=== PATIENT | female | born 1940 | race African-American/Black ===

== ENCOUNTER 2022-02-24 12:47 | Emergency (ER) | payer MEDICARE, MEDICAID ==
[~2022-02-24] VITALS: Ht 165.1 cm; Wt 78.0 kg
[~2022-02-24 12:47] MED LIST: ALBU25PO2 INH; ASPI-1079 PO; BUDE6HFA INH; LOSA1TAB37 PO; LOVA20TA2 PO; METF-414 PO; P20 PO; PRED10TA PO
[2022-02-24 12:51] VITALS: BP 185/93
[2022-02-24] MEDS ORDERED: ACETAMINOPHEN 325MG TABLET PO ONE (15:30)
[2022-02-24] MEDS ORDERED: ACET-2708 MT (16:07)
== END 2022-02-24 16:37 | disposition home or self-care (01) ==
LOC: ER 12:47
DX: S09.8XXA Other specified injuries of head, initial encounter (principal); S93.401A Sprain of unspecified ligament of right ankle, initial encounter; J44.9 Chronic obstructive pulmonary disease, unspecified; E11.9 Type 2 diabetes mellitus without complications; I10 Essential (primary) hypertension; W01.0XXA Fall on same level from slipping, tripping and stumbling without subsequent striking against object, initial encounter; Y93.89 Activity, other specified; Y92.9 Unspecified place or not applicable; Z79.82 Long term (current) use of aspirin; Z87.891 Personal history of nicotine dependence
CPT/HCPCS: 73610; 73630; 99284

== ENCOUNTER 2022-06-29 09:56 | Inpatient (IN) | payer MEDICARE, MEDICAID ==
[~2022-06-29] VITALS: Ht 162.6 cm; Wt 82.1 kg
[~2022-06-29 09:56] MED LIST changes: +ACET-2708 MT
[2022-06-29 15:18] LABS: BASOPHILS % 0.5 % (0.0-2.0); HEMATOCRIT. 43.8 % (36.0-48.0); HEMOGLOBIN. 14.4 g/dL (12.0-16.0); LYMPHOCYTES % 35.5 % (20.0-50.0); MEAN CORPUSCULAR HEMOGLOBIN 28.2 pg (28.0-32.0); MEAN CORPUSCULAR VOLUME 85.9 fL (81.0-99.0); MEAN PLATELET VOLUME 9.4 fl (7.4-10.4); PLATELET 286 x1000/uL (130-400); RED CELL DISTRIBUTION WIDTH 15.4 % (11.6-14.6)
[2022-06-29 15:20] LABS: CHLORIDE 106 mEq/L (98-107)
[2022-06-29 15:36] LABS: ETHANOL BLOOD < 10 mg/dL
[2022-06-29 15:55] LABS: FOLIC ACID (FOLATE) SERUM 13.3 ng/mL (>5.38)
[2022-06-29 16:00] LABS: CLARITY URINE CLOUDY (CLEAR); COLOR URINE YELLOW (YELLOW); KETONES URINE NEGATIVE (NEGATIVE); LEUKOCYTE ESTERASE URINE 1+ (NEGATIVE); NITRITE URINE NEGATIVE (NEGATIVE); OCCULT BLOOD URINE NEGATIVE (NEGATIVE); PH URINE 5.5 (4.5-8.0); PROTEIN URINE NEGATIVE (NEGATIVE); SPECIFIC GRAVITY URINE 1.021 (1.005-1.030)
[2022-06-29 16:32] LABS: *AMPHETAMINES SCREEN URINE NEGATIVE (NEGATIVE); *BARBITURATES SCREEN URINE NEGATIVE (NEGATIVE); *BENZODIAZEPINES SCREEN URINE NEGATIVE (NEGATIVE); *COCAINE SCREEN URINE NEGATIVE (NEGATIVE); CANNABINOID URINE SCREEN NEGATIVE (NEGATIVE); METHADONE URINE SCREEN NEGATIVE (NEGATIVE); OPIATES URINE SCREEN NEGATIVE (NEGATIVE); PHENCYCLIDINE URINE SCREEN NEGATIVE (NEGATIVE)
[2022-06-29 19:01] VITALS: BP 153/71
[2022-06-29 20:00] VITALS: BP_SYST 130; BP_SYST 158; BP_DIAS 74; BP_DIAS 90
[2022-06-30] VITALS: BP 150/56
[2022-06-30 04:00] VITALS: BP 127/50
[2022-06-30 08:00] VITALS: BP 142/93
[2022-06-30 12:00] VITALS: BP 148/96
[2022-06-30] MEDS ORDERED: CEFTRIAXONE 1 G PREMIX 50 ML IV SCH (15:45)
[2022-06-30] MEDS ORDERED: ONDANSETRON HCL 4MG/2ML INJ IV PRN (15:45)
[2022-06-30 16:00] VITALS: BP 150/94
[2022-06-30] MEDS: CEFTRIAXONE 1,000 MG in DEXTROSE 5% WATER 50 ML IV SCH (17:00)
[2022-06-30] MEDS: METFORMIN HCL 500MG TABLET PO SCH (18:33)
[2022-06-30] MEDS: QUETIAPINE FUMARATE 25MG TABLET PO SCH (19:15)
[2022-06-30] MEDS ORDERED: HALOPERIDOL LACTATE 5MG/ML VIAL IM NR (19:15)
[2022-06-30 20:00] VITALS: BP 130/90
[2022-07-01] VITALS: BP 130/90
[2022-07-01 04:00] VITALS: BP 130/90
[2022-07-01 08:00] VITALS: BP 133/71
[2022-07-01 08:21] LABS: BASOPHILS % 0.4 % (0.0-2.0); EOSINOPHILS % 2.7 % (0.0-5.0); HEMATOCRIT. 44.4 % (36.0-48.0); HEMOGLOBIN. 14.7 g/dL (12.0-16.0); LYMPHOCYTES % 30.9 % (20.0-50.0); MEAN CORPUSCULAR HEMOGLOBIN 28.5 pg (28.0-32.0); MEAN CORPUSCULAR VOLUME 86.4 fL (81.0-99.0); MEAN PLATELET VOLUME 9.3 fl (7.4-10.4); MONOCYTES % 8.9 % (2.0-8.0); NEUTROPHILS % 57.1 % (40.0-76.0); PLATELET 271 x1000/uL (130-400); RED BLOOD CELL COUNT 5.14 mill/uL (4.2-5.4); RED CELL DISTRIBUTION WIDTH 15.2 % (11.6-14.6)
[2022-07-01 08:31] LABS: CHLORIDE 104 mEq/L (98-107)
[2022-07-01] MEDS: QUETIAPINE FUMARATE 25MG TABLET PO SCH ×2 (09:21→17:13)
[2022-07-01] MEDS: METFORMIN HCL 500MG TABLET PO SCH ×2 (09:21→17:13)
[2022-07-01] MEDS: ASPIRIN 81MG TABLET PO SCH (09:21)
[2022-07-01 12:00] VITALS: BP 165/68
[2022-07-01 16:00] VITALS: BP 125/81
[2022-07-01] MEDS: CEFTRIAXONE 1,000 MG in DEXTROSE 5% WATER 50 ML IV SCH (17:00)
[2022-07-01 20:00] VITALS: BP 127/58
[2022-07-02] VITALS: BP 128/54
[2022-07-02 04:00] VITALS: BP 124/54
[2022-07-02 08:00] VITALS: BP 112/61
[2022-07-02] MEDS: METFORMIN HCL 500MG TABLET PO SCH ×2 (08:53→19:17)
[2022-07-02] MEDS: ASPIRIN 81MG TABLET PO SCH (08:53)
[2022-07-02] MEDS: QUETIAPINE FUMARATE 25MG TABLET PO SCH ×2 (08:53→19:17)
[2022-07-02 12:00] VITALS: BP 131/68
[2022-07-02 16:00] VITALS: BP 142/58
[2022-07-02] MEDS: CEFTRIAXONE 1,000 MG in DEXTROSE 5% WATER 50 ML IV SCH (17:40)
[2022-07-02] MEDS: BLOOD SUGAR DIAGNOSTIC STRIP TEST SCH ×2 (19:21→21:05)
[2022-07-02] MEDS ORDERED: DEXTROSE 50% WATER 50ML SYRINGE IV PRN (19:30)
[2022-07-02] MEDS: INSULIN LISPRO 100 UNITS/ML SUBCUT SCH (21:00)
[2022-07-03] MEDS: BLOOD SUGAR DIAGNOSTIC STRIP TEST SCH ×4 (06:31→20:22)
[2022-07-03] MEDS: INSULIN LISPRO 100 UNITS/ML SUBCUT SCH ×3 (06:32→20:27)
[2022-07-03 08:00] VITALS: BP 124/54
[2022-07-03] MEDS: METFORMIN HCL 500MG TABLET PO SCH ×2 (08:41→17:42)
[2022-07-03] MEDS: ASPIRIN 81MG TABLET PO SCH (08:41)
[2022-07-03] MEDS: QUETIAPINE FUMARATE 25MG TABLET PO SCH ×2 (08:41→17:42)
[2022-07-03 12:00] VITALS: BP 129/53
[2022-07-03 16:00] VITALS: BP 175/68
[2022-07-03] MEDS: CEFTRIAXONE 1,000 MG in DEXTROSE 5% WATER 50 ML IV SCH (17:42)
[2022-07-03 20:00] VITALS: BP 142/62
[2022-07-04] VITALS: BP 124/64
[2022-07-04 04:00] VITALS: BP 136/58
[2022-07-04] MEDS: BLOOD SUGAR DIAGNOSTIC STRIP TEST SCH ×4 (06:31→20:12)
[2022-07-04] MEDS: INSULIN LISPRO 100 UNITS/ML SUBCUT SCH ×4 (07:50→20:44)
[2022-07-04] MEDS: METFORMIN HCL 500MG TABLET PO SCH ×2 (08:52→17:13)
[2022-07-04] MEDS: QUETIAPINE FUMARATE 25MG TABLET PO SCH ×2 (08:53→17:13)
[2022-07-04] MEDS: ASPIRIN 81MG TABLET PO SCH (08:53)
[2022-07-04] MEDS ORDERED: CLONIDINE 0.1MG TABLET PO PRN (14:15)
[2022-07-04] MEDS: LOSARTAN POTASSIUM 50 MG TABLET PO SCH (14:27)
[2022-07-04] MEDS: CEFTRIAXONE 1,000 MG in DEXTROSE 5% WATER 50 ML IV SCH (17:13)
[2022-07-04 20:00] VITALS: BP 135/66
[2022-07-05] VITALS: BP 105/56
[2022-07-05 04:00] VITALS: BP 138/89
[2022-07-05] MEDS: BLOOD SUGAR DIAGNOSTIC STRIP TEST SCH ×4 (06:52→20:25)
[2022-07-05] MEDS: INSULIN LISPRO 100 UNITS/ML SUBCUT SCH ×4 (07:50→20:25)
[2022-07-05 08:00] VITALS: BP 138/54
[2022-07-05] MEDS: ASPIRIN 81MG TABLET PO SCH (08:53)
[2022-07-05] MEDS: METFORMIN HCL 500MG TABLET PO SCH ×2 (08:53→18:00)
[2022-07-05] MEDS: QUETIAPINE FUMARATE 25MG TABLET PO SCH ×2 (08:53→18:00)
[2022-07-05] MEDS: LOSARTAN POTASSIUM 50 MG TABLET PO SCH (08:53)
[2022-07-05 12:00] VITALS: BP 129/56
[2022-07-05 16:00] VITALS: BP 134/61
[2022-07-05] MEDS: CEFTRIAXONE 1,000 MG in DEXTROSE 5% WATER 50 ML IV SCH (18:00)
[2022-07-05 20:00] VITALS: BP 134/59
[2022-07-06] VITALS: BP 121/82
[2022-07-06 04:00] VITALS: BP 125/75
[2022-07-06] MEDS: BLOOD SUGAR DIAGNOSTIC STRIP TEST SCH ×4 (06:59→21:00)
[2022-07-06] MEDS: INSULIN LISPRO 100 UNITS/ML SUBCUT SCH ×4 (07:50→21:00)
[2022-07-06 08:00] VITALS: BP 151/54
[2022-07-06] MEDS: METFORMIN HCL 500MG TABLET PO SCH ×2 (08:08→18:04)
[2022-07-06] MEDS: ASPIRIN 81MG TABLET PO SCH (08:41)
[2022-07-06] MEDS: LOSARTAN POTASSIUM 50 MG TABLET PO SCH (08:41)
[2022-07-06] MEDS: ACETAMINOPHEN 325MG TABLET PO PRN (08:41)
[2022-07-06] MEDS: QUETIAPINE FUMARATE 25MG TABLET PO SCH ×2 (08:42→18:01)
[2022-07-06 12:00] VITALS: BP 137/54
[2022-07-06 16:00] VITALS: BP 125/58
[2022-07-06 20:00] VITALS: BP 153/69
[2022-07-07] VITALS: BP 148/64
[2022-07-07 04:00] VITALS: BP 153/63
[2022-07-07] MEDS: BLOOD SUGAR DIAGNOSTIC STRIP TEST SCH ×4 (06:34→21:00)
[2022-07-07] MEDS: METFORMIN HCL 500MG TABLET PO SCH (06:49)
[2022-07-07] MEDS: INSULIN LISPRO 100 UNITS/ML SUBCUT SCH ×3 (07:50→21:45)
[2022-07-07 08:00] VITALS: BP 143/62
[2022-07-07] MEDS: ASPIRIN 81MG TABLET PO SCH (09:17)
[2022-07-07] MEDS: LOSARTAN POTASSIUM 50 MG TABLET PO SCH (09:18)
[2022-07-07] MEDS: QUETIAPINE FUMARATE 25MG TABLET PO SCH ×2 (09:18→17:17)
[2022-07-07 12:00] VITALS: BP 138/61
[2022-07-07 20:00] VITALS: BP 150/63
[2022-07-08] VITALS (7 sets, daily range): BP systolic 136–169; BP diastolic 55–76
[2022-07-08] MEDS: BLOOD SUGAR DIAGNOSTIC STRIP TEST SCH ×4 (06:45→21:00)
[2022-07-08] MEDS: INSULIN LISPRO 100 UNITS/ML SUBCUT SCH ×4 (07:15→21:00)
[2022-07-08] MEDS: QUETIAPINE FUMARATE 25MG TABLET PO SCH ×2 (08:58→18:47)
[2022-07-08] MEDS: METFORMIN HCL 500MG TABLET PO SCH ×2 (08:58→18:47)
[2022-07-08] MEDS: ASPIRIN 81MG TABLET PO SCH (08:58)
[2022-07-08] MEDS: LOSARTAN POTASSIUM 50 MG TABLET PO SCH (08:58)
[2022-07-09] VITALS: BP 136/55
[2022-07-09 04:00] VITALS: BP 147/76
[2022-07-09] MEDS: BLOOD SUGAR DIAGNOSTIC STRIP TEST SCH ×4 (06:45→21:00)
[2022-07-09] MEDS: INSULIN LISPRO 100 UNITS/ML SUBCUT SCH ×4 (07:01→21:03)
[2022-07-09] MEDS: METFORMIN HCL 500MG TABLET PO SCH ×2 (07:01→17:15)
[2022-07-09 08:25] VITALS: BP 154/60
[2022-07-09] MEDS: LOSARTAN POTASSIUM 50 MG TABLET PO SCH (09:07)
[2022-07-09] MEDS: ASPIRIN 81MG TABLET PO SCH (09:07)
[2022-07-09] MEDS: QUETIAPINE FUMARATE 25MG TABLET PO SCH ×2 (09:08→17:46)
[2022-07-09 11:18] VITALS: BP 149/56
[2022-07-09 16:00] VITALS: BP 140/71
[2022-07-09 20:00] VITALS: BP 155/63
[2022-07-10] VITALS: BP 127/54
[2022-07-10 04:00] VITALS: BP 134/65
[2022-07-10] MEDS: BLOOD SUGAR DIAGNOSTIC STRIP TEST SCH ×4 (06:45→20:57)
[2022-07-10] MEDS: METFORMIN HCL 500MG TABLET PO SCH ×2 (07:04→18:18)
[2022-07-10] MEDS: INSULIN LISPRO 100 UNITS/ML SUBCUT SCH ×4 (07:05→20:57)
[2022-07-10 08:00] VITALS: BP 118/80
[2022-07-10] MEDS: ASPIRIN 81MG TABLET PO SCH (09:00)
[2022-07-10] MEDS: LOSARTAN POTASSIUM 50 MG TABLET PO SCH (09:00)
[2022-07-10] MEDS: QUETIAPINE FUMARATE 25MG TABLET PO SCH ×2 (09:00→18:18)
[2022-07-10 09:15] LABS: CHLORIDE 106 mEq/L (98-107)
[2022-07-10 12:00] VITALS: BP 123/79
[2022-07-10 16:00] VITALS: BP 160/67
[2022-07-10 20:00] VITALS: BP 111/48
[2022-07-11] VITALS: BP 146/66
[2022-07-11 04:00] VITALS: BP 138/63
[2022-07-11] MEDS: BLOOD SUGAR DIAGNOSTIC STRIP TEST SCH ×4 (06:35→20:07)
[2022-07-11] MEDS: INSULIN LISPRO 100 UNITS/ML SUBCUT SCH ×4 (06:36→21:00)
[2022-07-11] MEDS: METFORMIN HCL 500MG TABLET PO SCH ×2 (06:43→18:21)
[2022-07-11 08:00] VITALS: BP 137/56
[2022-07-11] MEDS: LOSARTAN POTASSIUM 50 MG TABLET PO SCH (09:10)
[2022-07-11] MEDS: ASPIRIN 81MG TABLET PO SCH (09:10)
[2022-07-11] MEDS: QUETIAPINE FUMARATE 25MG TABLET PO SCH ×2 (09:10→18:21)
[2022-07-11 12:00] VITALS: BP 115/53
[2022-07-11 16:00] VITALS: BP 131/70
[2022-07-11 20:00] VITALS: BP_SYST 144; BP_SYST 150; BP_DIAS 61; BP_DIAS 65
[2022-07-12] VITALS: BP 133/63
[2022-07-12 04:00] VITALS: BP 140/61
[2022-07-12] MEDS: BLOOD SUGAR DIAGNOSTIC STRIP TEST SCH ×4 (05:51→21:42)
[2022-07-12] MEDS: INSULIN LISPRO 100 UNITS/ML SUBCUT SCH ×4 (05:52→21:00)
[2022-07-12] MEDS: METFORMIN HCL 500MG TABLET PO SCH ×2 (07:02→17:57)
[2022-07-12 08:33] VITALS: BP 146/69
[2022-07-12] MEDS: LOSARTAN POTASSIUM 50 MG TABLET PO SCH (10:28)
[2022-07-12] MEDS: ASPIRIN 81MG TABLET PO SCH (10:28)
[2022-07-12] MEDS: QUETIAPINE FUMARATE 25MG TABLET PO SCH ×2 (10:29→17:57)
[2022-07-12] MEDS: ACETAMINOPHEN 325MG TABLET PO PRN (10:29)
[2022-07-12 12:41] VITALS: BP 134/53
[2022-07-12 16:14] VITALS: BP 129/48
[2022-07-12 20:00] VITALS: BP 155/65
[2022-07-13] VITALS: BP 143/66
[2022-07-13 04:00] VITALS: BP 150/54
[2022-07-13] MEDS: INSULIN LISPRO 100 UNITS/ML SUBCUT SCH ×4 (06:22→20:43)
[2022-07-13] MEDS: BLOOD SUGAR DIAGNOSTIC STRIP TEST SCH ×4 (06:22→20:43)
[2022-07-13] MEDS: METFORMIN HCL 500MG TABLET PO SCH ×2 (06:22→16:37)
[2022-07-13 08:44] VITALS: BP 129/54
[2022-07-13] MEDS: QUETIAPINE FUMARATE 25MG TABLET PO SCH ×2 (08:44→16:37)
[2022-07-13] MEDS: ASPIRIN 81MG TABLET PO SCH (08:44)
[2022-07-13] MEDS: LOSARTAN POTASSIUM 50 MG TABLET PO SCH (08:44)
[2022-07-13 16:25] VITALS: BP 125/61
[2022-07-13 20:00] VITALS: BP 161/86
[2022-07-14] VITALS: BP 150/82
[2022-07-14 04:00] VITALS: BP 148/80
[2022-07-14] MEDS: BLOOD SUGAR DIAGNOSTIC STRIP TEST SCH ×4 (06:38→20:42)
[2022-07-14] MEDS: INSULIN LISPRO 100 UNITS/ML SUBCUT SCH ×4 (06:38→20:42)
[2022-07-14] MEDS: METFORMIN HCL 500MG TABLET PO SCH ×2 (06:39→17:52)
[2022-07-14 08:00] VITALS: BP 155/49
[2022-07-14] MEDS: LOSARTAN POTASSIUM 50 MG TABLET PO SCH (10:41)
[2022-07-14] MEDS: QUETIAPINE FUMARATE 25MG TABLET PO SCH ×2 (10:42→17:51)
[2022-07-14] MEDS: ASPIRIN 81MG TABLET PO SCH (10:42)
[2022-07-14 12:00] VITALS: BP 144/84
[2022-07-14 16:00] VITALS: BP 142/74
[2022-07-14 20:00] VITALS: BP 127/51
[2022-07-15 04:00] VITALS: BP 134/57
[2022-07-15] MEDS: BLOOD SUGAR DIAGNOSTIC STRIP TEST SCH ×3 (05:53→17:42)
[2022-07-15] MEDS: METFORMIN HCL 500MG TABLET PO SCH ×2 (06:22→17:42)
[2022-07-15] MEDS: INSULIN LISPRO 100 UNITS/ML SUBCUT SCH ×3 (06:25→17:15)
[2022-07-15 08:00] VITALS: BP 143/77
[2022-07-15] MEDS: QUETIAPINE FUMARATE 25MG TABLET PO SCH ×2 (08:51→17:42)
[2022-07-15] MEDS: LOSARTAN POTASSIUM 50 MG TABLET PO SCH (08:51)
[2022-07-15] MEDS: ASPIRIN 81MG TABLET PO SCH (08:51)
[2022-07-15 12:00] VITALS: BP 122/72
[2022-07-15 16:00] VITALS: BP 154/75
[2022-07-15 19:22] VITALS: BP 154/75
[2022-07-15 20:00] VITALS: BP 164/61
== END 2022-07-15 20:10 | disposition home or self-care (01) | DRG 689 ==
LOC: ER 09:56 → 6EST 14:39 → EDBEDREQTM 14:41 → EDBEDREQ 14:41 → ENRESERV 17:18 → 5WST 07-07 17:19
PROVIDERS: ADMIT Internal Medicine; ATTEND Internal Medicine
DX: N39.0 Urinary tract infection, site not specified (principal); G93.41 Metabolic encephalopathy; I10 Essential (primary) hypertension; E11.9 Type 2 diabetes mellitus without complications; F03.90 Unspecified dementia, unspecified severity, without behavioral disturbance, psychotic disturbance, mood disturbance, and anxiety; J44.9 Chronic obstructive pulmonary disease, unspecified
CPT/HCPCS: 36415; 80048; 80053; 80305; 80307; 80320; 80329; 81003; 82140; 82607; 82746; 82962; 83036; 84132; 84443; 85025; 97161; 97166; 99285; J0696; J1815; J7060; G0480